=== PATIENT | male | born 1960 | race Caucasian/White ===

== ENCOUNTER 2021-12-19 11:30 | Emergency (ER) | payer BC ==
[2021-12-19 11:47] VITALS: BP 131/94; PULSE 80
== END 2021-12-19 12:20 | disposition home or self-care (01) ==
LOC: KA.ED 11:30
DX: S46.212A Strain of muscle, fascia and tendon of other parts of biceps, left arm, initial encounter (principal); E78.00 Pure hypercholesterolemia, unspecified; I10 Essential (primary) hypertension; K21.9 Gastro-esophageal reflux disease without esophagitis; Z88.8 Allergy status to other drugs, medicaments and biological substances; Z79.82 Long term (current) use of aspirin; X50.0XXA Overexertion from strenuous movement or load, initial encounter
CPT/HCPCS: 99283

== ENCOUNTER 2024-12-30 09:20 | Emergency (ER) | payer BC ==
[2024-12-30] MEDS: Sodium Chloride 0.9% 1,000 ML IV ONE (09:34)
[2024-12-30] MEDS: Ondansetron 4 MG/2 ML SDV IVPUSH ONE (09:34)
[2024-12-30 09:36] LABS: BASOPHILS ABSOLUTE AUTO 0.01 10^3/uL (0.00-0.10); BASOPHILS PERCENT AUTO 0.1 % (0.0-1.0); EOSINOPHILS ABSOLUTE AUTO 0.07 10^3/uL (0.10-0.30); HEMATOCRIT 47.6 % (40.0-52.0); HEMOGLOBIN 16.4 g/dL (13.0-17.0); IMMATURE GRAN ABSOLUTE AUTO 0.02 10^3/uL (0.00-0.04); IMMATURE GRAN PERCENT AUTO 0.3 % (0.0-0.4); LYMPHOCYTES PERCENT AUTO 12.8 % (20.0-40.0); MEAN CORPUSCULAR HEMOGLOBIN 30.7 pg (27.0-31.0); MEAN CORPUSCULAR HGB CONC 34.5 g/dL (32.0-36.0); MEAN CORPUSCULAR VOLUME 89.1 fL (82.0-92.0); MEAN PLATELET VOLUME 9.2 fL (7.4-10.4); MONOCYTES ABSOLUTE AUTO 0.72 10^3/uL (0.10-0.80); MONOCYTES PERCENT AUTO 10.3 % (2.0-8.0); NEUTROPHILS PERCENT AUTO 75.5 % (50.0-70.0); PLATELET COUNT,PLT 164 10^3/uL (150-400); RED BLOOD CELL COUNT 5.34 10^6/uL (4.50-6.00); RED CELL DISTRIBUTION WIDTH 13.4 % (11.5-14.5); WHITE BLOOD CELL COUNT,WBC 7.02 10^3/uL (5.00-10.00)
[2024-12-30 09:55] LABS: ALANINE AMINOTRANSFERASE,ALT 307 U/L (14-63); ALKALINE PHOSPHATASE 103 U/L (46-116); ASPARTATE AMNIOTRANSFERASE,AST 209 U/L (15-37); BILIRUBIN TOTAL 0.7 mg/dL (0.2-1.0); BLOOD UREA NITROGEN,BUN 23 mg/dL (7-18); CALCIUM 8.8 mg/dL (8.7-10.3); CARBON DIOXIDE,CO2 23.2 mmol/L (21.0-32.0); CHLORIDE,CL 101 mmol/L (98-107); CREATININE 1.23 mg/dL (0.51-1.17); ESTIMATED GFR 66 mL/min (>=60); GLUCOSE RANDOM 126 mg/dL (70-140); POTASSIUM,K 3.2 mmol/L (3.5-5.1); PROTEIN TOTAL,TP 6.6 g/dL (6.4-8.2); SODIUM,NA 137 mmol/L (136-145)
[2024-12-30] MEDS: Potassium Chloride 10 MEQ Tab.ER PO ONE (10:38)
[2024-12-31 08:45] VITALS: BP 159/77; PULSE 84
== END 2024-12-30 10:52 | disposition home or self-care (01) ==
LOC: KA.ED 09:20
DX: E86.0 Dehydration (principal); R94.5 Abnormal results of liver function studies; I10 Essential (primary) hypertension; Z90.49 Acquired absence of other specified parts of digestive tract; Z88.5 Allergy status to narcotic agent; Z88.8 Allergy status to other drugs, medicaments and biological substances; Z79.899 Other long term (current) drug therapy
CPT/HCPCS: 36415; 80053; 85025; 96361; 96374; 99284; 99284-25; A9270-GY; J2405; J7030